=== PATIENT | female | born 1990 | race Caucasian/White ===

== ENCOUNTER 2018-06-09 21:47 | Outpatient (CLI) | payer OTHER | END 2018-06-10 14:27 | disposition home or self-care (01) | LOC: OBS/DEL 21:47 | DX: O76 Abnormality in fetal heart rate and rhythm complicating labor and delivery (principal); Z34.83 Encounter for supervision of other normal pregnancy, third trimester ==

== ENCOUNTER 2018-07-17 08:14 | Inpatient (IN) | payer OTHER ==
[~2018-07-17] VITALS: Ht 167.6 cm; Wt 2.7 kg
[~2018-07-17 08:14] MED LIST: PRENATABS RX T1 EACH PO
== END 2018-07-20 16:56 | DRG 786 ==
LOC: OB/GYN 08:14 → O/R 08:14 → OB/GYN 08:20
PROVIDERS: Obstetrics & Gynecology
PROC: 0UCC7ZZ Extirpation of Matter from Cervix, Via Natural or Artificial Opening (ICD-10-PCS; 2018-07-17)
PROC: 4A1HXCZ Monitoring of Products of Conception, Cardiac Rate, External Approach (ICD-10-PCS; 2018-07-17)
PROC: 0UT90ZZ Resection of Uterus, Open Approach (ICD-10-PCS; 2018-07-17)
PROC: 10D00Z1 Extraction of Products of Conception, Low, Open Approach (ICD-10-PCS; principal; 2018-07-17 14:00)
DX: O34.211 Maternal care for low transverse scar from previous cesarean delivery (principal); O34.33 Maternal care for cervical incompetence, third trimester; O99.89 Other specified diseases and conditions complicating pregnancy, childbirth and the puerperium; O75.82 Onset (spontaneous) of labor after 37 completed weeks of gestation but before 39 completed weeks gestation, with delivery by (planned) cesarean section; N73.6 Female pelvic peritoneal adhesions (postinfective); O34.13 Maternal care for benign tumor of corpus uteri, third trimester; D25.1 Intramural leiomyoma of uterus; Z3A.38 38 weeks gestation of pregnancy; Z37.0 Single live birth